=== PATIENT | male | born 2000 | race Caucasian/White ===

== ENCOUNTER 2020-06-20 04:02 | Emergency (ER) | payer SELFPAY ==
[~2020-06-20] VITALS: Ht 167.6 cm; Wt 52.2 kg
--- NOTE | 2020-06-20 04:02 | NUR ---
PT KODY VARGAS, PREBOOK. TAKEN TO CHAIR
[2020-06-20 04:07] VITALS: BP 127/72
--- NOTE | 2020-06-20 04:20 | NUR ---
PATIENT BIB [facility]. PATIENT EXAMINED BY DR. BATRES. PATIENT MEDICALLY CLEARED AND RELEASED IN CUSTODY IN STABLE CONDITION. ORIGINAL PRE-BOOK FORM GIVEN TO OFFICER FANG, #[id number].
== END 2020-06-20 04:20 ==
LOC: MED 04:02
DX: Z02.89 Encounter for other administrative examinations (principal)
CPT/HCPCS: 99283